=== PATIENT | male | born 1960 | race Caucasian/White ===

== ENCOUNTER 2018-03-05 13:36 | Inpatient (IN) ==
[2018-03-05] MEDS ORDERED: CeFAZolin Syr 3,000MG/30 ML 3,000 MG/30 ML SYRINGE IVPB ONE (14:04)
[2018-03-05] MEDS ORDERED: Ringers Solution, Lactated 1,000 ML IVC SCH ×2 (14:15→17:41)
[2018-03-05] MEDS ORDERED: Bupivacaine/Clonidine Syringe 1 EACH SYRINGE ONE (14:55)
[2018-03-05] MEDS ORDERED: Ethanol\\Acetic Acid\\Na Ace\\Ben 1,000 ML IRRIG.SOLN IR ONE (15:08)
[2018-03-05] MEDS ORDERED: *HR* Midazolam HCl 2 MG/2 ML VIAL ONE (15:08)
[2018-03-05] MEDS ORDERED: *HR* FentaNYL (PF) 100 MCG/2 ML VIAL ONE ×2 (15:08→15:09)
[2018-03-05] MEDS ORDERED: Dexamethasone 4 MG/ML VIAL ONE ×2 (15:09→15:18)
[2018-03-05] MEDS ORDERED: ROPIVACAINE HCL/PF 0.5% 30 ML VIAL ONE (15:10)
[2018-03-05] MEDS ORDERED: *HR* Succinylcholine 200 MG/10 ML VIAL IVP ONE ×2 (15:18→15:24)
[2018-03-05] MEDS ORDERED: Ondansetron 4 MG/2 ML VIAL ONE (15:18)
[2018-03-05] MEDS ORDERED: *HR* Rocuronium Bromide 50 MG/5 ML VIAL ONE ×2 (15:18→15:24)
[2018-03-05] MEDS ORDERED: *HR* Propofol 200 MG/20 ML VIAL IVP ONE ×2 (15:24→15:49)
[2018-03-05] MEDS ORDERED: Lidocaine -MPF 2% 2 ML VIAL ONE (15:24)
[2018-03-05] MEDS ORDERED: Lidocaine -MPF 4% 5 ML AMPUL ONE (15:24)
[2018-03-05] MEDS ORDERED: *HR* Meperidine 25 MG/ML SYRINGE IVP PRN (15:59)
[2018-03-05] MEDS ORDERED: *HR* Labetalol 20 MG/4 ML SYRINGE IVP PRN (15:59)
[2018-03-05] MEDS ORDERED: Ondansetron 4 MG/2 ML VIAL IVP ONE (15:59)
[2018-03-05] MEDS ORDERED: *HR* Promethazine 25 MG/ML VIAL IVP PRN (15:59)
[2018-03-05] MEDS ORDERED: *HR* HYDROmorphone (PF) 1 MG/ML SYRINGE IVP PRN (15:59)
[2018-03-05] MEDS ORDERED: *HR* PHENYLEPHRINE 1,000 MCG/10 ML SYRINGE IVP ONE ×2 (16:06→16:35)
[2018-03-05] MEDS ORDERED: EPHEDrine 50 MG/ML VIAL ONE (16:18)
[2018-03-05 17:31] LABS: Hematocrit 47.6 % (37.5-50.1)
[2018-03-05] MEDS ORDERED: traMADol 50 MG TABLET PO PRN (17:41)
[2018-03-05] MEDS ORDERED: Naloxone 0.4 MG/ML INJ IVP PRN (17:41)
[2018-03-05] MEDS ORDERED: Ondansetron 4 MG/2 ML VIAL IVP PRN (17:41)
[2018-03-05] MEDS ORDERED: Temazepam 15 MG CAPSULE PO PRN (17:41)
[2018-03-05] MEDS ORDERED: Sennosides 8.6 MG TABLET PO PRN (17:41)
[2018-03-05] MEDS ORDERED: MOM Conc 10 ML UD.LIQ PO PRN (17:41)
[2018-03-05] MEDS ORDERED: *HR* HYDROcodone/Acet 10/325 mg TABLET PO PRN (17:41)
[2018-03-05] MEDS ORDERED: *HR* HYDROcodone/Acet 5/325 mg TABLET PO PRN (17:41)
[2018-03-05] MEDS ORDERED: *HR* Enoxaparin 30 MG/0.3 ML SYRINGE SQ SCH (18:00)
--- NOTE | 2018-03-05 19:19 | Physician Discharge Referral ---
Home Health/Hosp Referral Info Transfer to: Home Health Provider in Charge Post Discharge: PCP - Diagnosis (1) Rotator cuff arthropathy of right shoulder Priority: Primary Status: Acute (2) Status post reverse arthroplasty of right shoulder Priority: Primary Status: Acute - Respiratory Orders None Smoking Cessation: Smoking cessation has been advised. For more information, call the [place] Tobacco Quit Line at 7-485-XUVD-NOW. - Diet/Nutrition Diet/Nutrition Orders: Regular - Activity Activity Orders: Ambulate - Services Needed Following services are medically necessary services: Nursing, Home Health Aide, Physical Therapy, Occupational Therapy Home Care Orders: Opsite dressing, leave intact until first post-operative visit. Zipline in place, plan to remove at post-operative day #14-16. If dressing becomes >50% saturated, contact office, remove dressing and place appropriate dressing in its place. Do not allow for dressing to get wet. Shoulder Precautions x 6 weeks. Apply cold therapy wrap 3-6x/day for 20 minutes at a time. Encourage ambulation throughout the day. Use Incentive spirometer 10x/hour. Elevate affected extremity above heart as tolerated. NWB to affected upper extremity x 6 weeks. Will remove brace at first post-operative appointment. OK to remove during PT/OT and Home exercises. Remove ABD pillow at Postoperative day #1 - Transfer Medications Home Medications: Aspirin 81 mg PO DAILY 06/26/17 [History] Gabapentin [Neurontin] 300 - 600 mg PO TID 06/26/17 [History] Oxycodone HCl/Acetaminophen [Percocet 7.5-325 mg Tablet] 1 each PO Q6HR PRN 3 Days #12 tablet 06/26/17 [Rx] Allergies/Adverse Reactions: Allergy/AdvReac Type Severity Reaction Status Date / Time codeine AdvReac Fever Verified 06/26/17 08:19 Oxycodone AdvReac Vomiting Verified 06/26/17 13:26 paper tape AdvReac Rash Uncoded 06/26/17 08:19 Certification: Further, I certify that my clinical findings support that this patient is homebound (i.e. absences from home require considerable and taxing effort and are for medical reasons or [employer] services or infrequently or short duration when for other reasons) because: Homebound Reason: Post-surgery restriction and or conditions limit ability to leave home Attestation: My signature below is to certify that this patient is under my care and that I, or nurse practitioner, or a physician's insurance underwriting assistant working with me, has a fac e-to-face encounter with this patient.
--- NOTE | 2018-03-05 19:21 | History & Physical Report ---
Date of Encounter: 03/05/18 Time of Encounter: 14:00 24 Hour HP Update - Instructions Instructions: If the History and Physical is less than 30 days old and was completed prior to A.M. admission and or procedure and has NOT been updated on calendar day of procedure please complete this update prior to performing procedure. - Update Patient reports changes in Medical Condition: No Changes in examination, assessment, or condition: No Changes in Medication: No Preop tests/diagnostics Reviewed: Yes Surgery Remains Indicated: Yes Consent for Planned Operative Procedure(s) Verified: Yes - Pre-Operative Checklist Preoperative Checklist Indicated: No Prophylactic Antibiotic Ordered: Yes Is VTE Prophylaxis Indicated?: Yes
--- NOTE | 2018-03-05 19:21 | Discharge Summary ---
Orders not resulted at time of discharge: Pending orders 03/05/18 13:39 XR shoulder complete RT [XR] Routine 03/05/18 13:40 H/H [Hemoglobin and Hematocrit] [HEME] Routine 03/05/18 13:54 US anesthesia pain block [US] Routine Date of Encounter: 03/08/18 Time of Encounter: 10:56 - Discharge Diagnosis (1) Obstructive sleep apnea Priority: Secondary Status: Chronic (2) History of DVT (deep vein thrombosis) Priority: Secondary Status: Chronic (3) History of CA (myocardial infarction) Priority: Secondary Status: Resolved (4) Rotator cuff arthropathy of right shoulder Priority: Primary Status: Chronic (5) Status post reverse arthroplasty of right shoulder Priority: Primary Status: Acute (6) Obesity (BMI 35.0-39.9 without comorbidity) Priority: Secondary Status: Chronic - Hospital Course Hospital course: Mr. aBteman is a 57 year old male Status post total shoulder replacement, patient with issues with pain control admission extended one more day. Patient discharged stable condition received advice and physical therapy discharge stable condition - Time Spent with Patient Total time spent providing and/or coordinating discharge services: - Discharge Medications Prescriptions: HYDROmorphone [Dilaudid] 2 mg PO Q6HR 5 Days #20 tablet Home Medications: Aspirin [Adult Aspirin Regimen] 81 mg PO DAILY 03/05/18 [History] HYDROcodone/Acet 5/325 mg [[place] 5-325 mg] 1 tab PO Q6H PRN 5 Days #20 tab 03/05/18 [Rx] HYDROmorphone [Dilaudid] 2 mg PO Q6HR 5 Days #20 tablet 03/05/18 [Rx] Lisinopril [Zestril] 40 mg PO DAILY 03/05/18 [History] Docusate Sodium [Dulcolax Stool Softener] 100 mg PO BID 03/06/18 [History] Levothyroxine Sodium [Levoxyl] 75 mcg PO DAILY 03/06/18 [History] Meloxicam [Mobic] 15 mg PO DAILY 03/06/18 [History] Tamsulosin [Flomax] 0.4 mg PO DAILY 03/06/18 [History] Testosterone Cypionate [Depo-Testosterone] 100 mg IM QWEEK 03/06/18 [History] Allergies/Adverse Reactions: Allergy/AdvReac Type Severity Reaction Status Date / Time codeine AdvReac Fever Verified 03/05/18 14:05 Oxycodone AdvReac Vomiting Verified 03/05/18 14:05 paper tape AdvReac Rash Uncoded 03/05/18 14:05 [facility] care [facility]: [facility] - Patient Status Disposition: Home Health Service - Discharge Instructions Follow Up With: [facility] [Primary Care Provider] - Additional Instructions: Discharge Instructions: Total Shoulder Please call [facility] ([phone]), your Primary Care Physician, or report to the Emergency Room if you have any of the following symptoms: Nausea, vomiting, fever greater that 101.5, swelling, chest pain, shortness of breath, increased pain/redness/drainage/odor for your incision site, numbness/tingling, or any other concerning symptoms. ACTIVITY: Always keep your arm in the sling. Do not raise your arm away from your body. Do not use your arm to help with getting in or out of bed. No weight bearing permitted. Only perform those exercises given to you by your therapist. Incentive Spirometer 10 times an hour. MEDICATIONS: Upon discharge resume your home medications. Take all the medications as prescribed. Take a stool softener if taking narcotic pain medications. Stool softeners are only effective if you drink enough fluids. Drink 6-8 glass of water or fluids a day, unless this is not allowed for another health problem. Despite using stool softeners, if you haven't had a bowel movement in 3 days, please switch to a gentle laxative. Gentle laxatives are sold over the counter. You should have a bowel movement within 24 hours, if not call the office. You will be discharged from the hospital with a prescription for pain medication. You are encouraged to decrease the use of narcotic pain medication as tolerated. Should you require a refill, please call the office. [facility] prescribes narcotic pain medication for only 4-6 weeks after surgery. If you require pain medication beyond this time period, you may be referred to your Primary Care Physician or to the Pain Clinic for further evaluation. Plan ahead for refills on pain medication as many narcotics either need to be picked up at the office or mailed. It is best to call 48-72 hours in advance of needing a prescription refill so you don't run out of medication. To help control the post-operative pain, you may take NSAIDs (Aleve,Advil, Motrin, Ibuprofen, Naprosyn) or Tylenol as prescribed on the bottle in addition to the pain medication. WOUND CARE: Leave the dressing on for 7-10 days. You may change the dressing if it becomes saturated greater than 50%. Do not get the dressing wet at anytime. Wash your hands with antibacterial soap, rinse and dry prior to any wound care. If you have saud the visiting nurse or rehab facility can remove the stapes 10-14 days after surgery and place steri-strips across the wound. Leave the steri-strips in place until they fall off on their own. You may let water from the shower run on top of the steri-strips. If you do not have a visiting nurse or rehab facility, you will need to return to the office at 10-14 days for the saud to be removed. If you have itching or redness around the dressing call the office. FOLLOW-UP: Please follow up with your surgeon in the orthopedic clinic, as scheduled
--- NOTE | 2018-03-05 19:21 | Anesthesia Evaluation PreOp ---
Date of Encounter: 03/05/18 Time of Encounter: 13:56 - Past History Planned Operation: Right Total Shoulder Cardiac History: MA (5+ years ago, good exercize), HTN, Other (Patient had a complicated postoperative course following gallbladder surgery. Developed bilateral DVT/PE. Had prolonged ICU stay. Reports that he did have an MA. He is on no cardiac medications.)) Pulmonary History: JAN Dx (CPAP) DIRECTOR OF BUSINESS CONTINUITY History: Other (Anxiety/Depression) Other Medical History: GERD, Other (Chronic Pain syndrome, Lumbar DDD, Post laminectomy Syndrome) Anesthesia History: No Prior Anesthetic Complications, Past Anesthesia (GB, Laminectomy, Kidney stones,Mario. TKR) Alcohol Use: none Drug use: none Medications and Allergies HYDROcodone/Acet 5/325 mg [[place] 5-325 mg] 1 tab PO Q6H PRN 5 Days #20 tab 03/05/18 [Rx] RX: Aspirin [Adult Aspirin Regimen] 81 mg PO DAILY 03/05/18 [History] RX: Lisinopril [Zestril] 20 mg PO DAILY 03/05/18 [History] Allergy/AdvReac Type Severity Reaction Status Date / Time codeine AdvReac Fever Verified 03/05/18 14:05 Oxycodone AdvReac Vomiting Verified 03/05/18 14:05 paper tape AdvReac Rash Uncoded 03/05/18 14:05 - Meds/Allergy Pre-op Review Medications Reviewed: Yes Allergies Reviewed: Yes Beta Blockers on Current Med List: No Anesthesia Results - Labs Laboratory Tests 06/23/17 02/23/18 02/23/18 08:55 18:15 18:15 WBC 8.1 Hgb 15.5 Hct 47.8 Plt Count 195 INR 1.0 Sodium 142 Potassium 3.9 Chloride 101 Carbon Dioxide 29 BUN 13 Creatinine 1.02 - Imaging EKG: report reviewed (SINUS RHYTHM LEFT ANTERIOR FASCICULAR BLOCK) Anesthesia Exam O2 Sat Height 1.93 m Height 1.93 m Weight 132.903 kg Weight 132.903 kg O2 Sat by Pulse Oximetry 95 Vital Signs Temp Pulse Resp BP Pulse Ox 98.0 F 94 18 164/98 95 03/05/18 13:50 03/05/18 13:50 03/05/18 13:50 03/05/18 13:50 03/05/18 13:50 NPO (# of Hours): > 8 hrs Pain Scale: 0 Pain Scale Used: Numeric (1 - 10) - HEENT Pupil (Motor): Pupils equal, EOMI Mallampati: II Teeth: Normal Oral Opening: Greater than 3 - DIRECTOR OF BUSINESS CONTINUITY LOC: Oriented DIRECTOR OF BUSINESS CONTINUITY Motor: Normal RUE, Normal LUE, Normal RLE, Normal LLE, Normal Face DIRECTOR OF BUSINESS CONTINUITY Sensory: Normal: RUE, LUE, RLE, LLE, Face - Cardiac Rhythm: Regular Murmur: None JVD: No Carotid Bruit: No - Pulmonary Breath Sounds: bilateral Clear Respiratory Effort: Symmetrical Anesthesia Assess/Plan ASA Score: 3 Modified Rumsey Scale for Level of Consciousness: Cooperative, oriented, and tranquil Anesthetic Plan: General, Regional Autologous Blood: Yes Monitoring Plan: Standard Monitors Recovery Plan: PACU
--- NOTE | 2018-03-05 19:35 | Anesthesia Procedures ---
Date of Encounter: 03/05/18 Time of Encounter: 15:00 Procedures: Anesthesia - Nerve Block Procedure Date: 03/05/18 Time: 15:00 Checklist: Correct Patient Identifier, Correct procedure Correct side: Right Blood Thinner: No Monitor Applied: EKG, BP, Pulse Oximetry Supplemental Oxygen via Nasal Cannula (L/min): 2 Sedation: Versed (mg): 2 Sedation: Fentanyl (mcg): 2 Indication: Post Op Analgesia Pre-op Neuro Deficits: No Block Type: Supraclavicular Catheter placed: No Sterile Technique: Yes Ultrasound used: Yes Anatomy identified: Yes Blood on Needle Aspiration: No Smooth Injection of Local: Yes Pain with Injection of Local: No Prep: Chlorhexadine Needle: 22 x 50 mm Stimuplex Local: 0.25% Bupivicaine w/Clonidine 20 mcg/cc (10 ml intercostal brachial 5 ml intermediate cervical plexus ), Ropivacaine (0.5% with 8 mg decadron 30 cc ) Volume (cc): 45 Number of Attempts: 1 Complications: None/effective block
--- NOTE | 2018-03-05 19:37 | Orthopedic Operative Note ---
Date of procedure: 03/05/18 Pre-op diagnosis: Right shoulder cuff tear arthropathy Post-op diagnosis: same Procedure: Procedure: Total Shoulder Replacment Reverse, right Estimated blood loss: 100 cc Hardware: Metal and polyethylene replacement: Arthrex 24, +4 , 35 screw glenoid baseplate, 2 4.5 screws. 2 5.5 screw, 1-2+4 glenosphere, 15 apex humeral stem, poly insert 3 and 12 metal Exam Under anesthesia: Full motion no stability Procedural Notes: Irreparable tear rotator cuff Operative procedure: The patient was brought to the operating room and placed on the operating room table. After general anesthesia was administered the operative shoulder was examined. Findings were noted. The patient was placed in the modified beachchair position. All pressure points were padded appropriately. And the head was stabilized in the neutral position. The operative extremity was prepped and draped in the sterile surgical fashion. The patient received IV antibiotics prior to skin incision. A standard deltopectoral approach was made to the operative shoulder. Incision was made to the skin and subcutaneous tissue,hemo stasis was obtained with Bovie cautery. Using careful blunt dissection the cephalic vein was identified and mobilized medially. The deltopectoral interval was developed and the clavipectoral fascia was incised. The subscap was released off the lesser tuberosity and tagged with #2 FiberWire suture subscap was irreparable. The humerus was dislocated patient noted to have irreparable tear supraspinatus tendon, and the humeral cut was made along the anatomic neck. Anterior and posterior Bankart retractors were placed to expose the glenoid. The glenoid guide was seated and the centering hole was made. It was reamed with the appropriate reamer. The 24, +4, 35 mm screw, baseplate was seated and secured with (2) 4.5 screws and 2 5.5 screw. The baseplate was irrigated and dried and the order 2+4 Glenosphere was seated and secured with the Moon taper. The Moon taper was tested and found to be secure the humerus was redislocated and prepared with the diaphyseal reamers, followed by a broaching process up to the appropriate size 15 apex in the patient's anatomic version. The metaphyseal reamer was then utilized. Trial reduction found the shoulder to be relocatable. Trial components were removed and 15 apex stem was impacted in place in the patient's anatomic version. Trial reduction found the shoulder to be relocatable and stable with the appropriate 12 metal 3 Nalini Trial component was removed and the real implant was seated and secured the shoulder was reduced. The shoulder had excellent motion and excellent stability and no evidence of dislocation. The deep tissue was irrigated with pulse irrigation. The deltopectoral interval was closed with a running #1 PDS suture, subcutaneous tissue was irrigated and closed with 0 PDS suture, the skin was closed with Dermabond. The patient was placed in a sterile dressing, abduction brace and extubated. The patient was then transferred to the recovery room in stable condition. Anesthesia: GETA Surgeon: Giovanni Simpson Was there an clothing sales assistant present: No Estimated blood loss (cc): 100 Condition: stable Disposition: PACU
--- NOTE | 2018-03-05 19:40 | Anesthesia Evaluation Post Op ---
Date of Encounter: 03/05/18 Time of Encounter: 17:35 - Vital Signs Vital Signs: Vital Signs/O2 Sat, Most Current Temp Pulse Resp BP Pulse Ox 99.2 F 101 16 128/84 96 03/05/18 17:26 03/05/18 17:26 03/05/18 17:26 03/05/18 17:26 03/05/18 17:26 - Lungs Lungs: Clear Ascult./Percussion - Airway Airway: Non-obstructed - Cardiovascular Regular Rate - Mental Status Mental Status: Alert & Oriented, Answers Appropriately - Pain Pain Scale: 0 Pain Scale used: Numeric (1 - 10) - Nausea Vomiting Nausea Vomiting: Not Present - Hydration Hydration: Ice chips, Has not voided - Discharge PostOp Status: Transfer Patient to floor
[2018-03-05] MEDS: *HR* Enoxaparin 30 MG/0.3 ML SYRINGE SQ SCH (20:24)
[2018-03-05] MEDS: *HR* HYDROmorphone 2 MG TABLET PO PRN (20:28)
[2018-03-06] MEDS: ceFAZolin sodium 3,000 MG in 0.9 % Sodium Chloride 100 ML IVPB SCH ×2 (00:11→09:22)
[2018-03-06] MEDS: *HR* HYDROmorphone 2 MG TABLET PO PRN ×3 (02:30→19:51)
[2018-03-06] MEDS: *HR* Enoxaparin 30 MG/0.3 ML SYRINGE SQ SCH ×2 (06:21→17:23)
[2018-03-06 06:22] LABS: Hematocrit 45.5 % (37.5-50.1); Hemoglobin 14.6 g/dL (12.9-16.9)
[2018-03-06] MEDS: Lisinopril 20 MG TABLET PO SCH (08:46)
[2018-03-06] MEDS: Aspirin Enteric Coated 81 MG Tablet PO SCH (08:49)
--- NOTE | 2018-03-06 10:25 | Orthopedics Progress Note ---
Date of Encounter: 03/06/18 Time of Encounter: 10:22 Subjective Interval history: S: Patient is seen today and has no complaints. O: Afebrile and vital signs are stable Operative extremity dressing is clean, dry, and intact. Neurovascularly intact distally A: Post right total shoulder replacement P: Resume postoperative [facility] today Objective Vital signs: Vital Signs Temp Pulse Resp BP Pulse Ox 03/06/18 06:47 97.9 F 90 18 111/71 94 03/06/18 03:41 97.9 F 88 18 117/75 94 03/05/18 23:11 98.2 F 98 18 126/85 93 03/05/18 19:30 98.0 F 97 16 125/79 95 03/05/18 18:50 99 15 129/84 94 03/05/18 18:18 97.8 F 99 16 126/85 93 03/05/18 17:45 97.7 F 98 16 128/84 93 03/05/18 17:26 99.2 F 101 16 128/84 96 03/05/18 17:16 105 16 134/98 96 03/05/18 17:06 105 18 127/87 97 03/05/18 16:56 99 F 101 18 132/84 100 03/05/18 15:22 88 18 140/100 95 03/05/18 13:50 98.0 F 94 18 164/98 95 Intake and Output 03/05/18 03/06/18 03/06/18 23:59 07:59 15:59 Intake Total 0 / 0 100 / 100 120 / 120 Output Total 400 / 400 600 / 600 Balance -400 / -400 -500 / -500 120 / 120 Intake: IV Fluids 100 / 100 Ancef 3,000 MG In 0.9 % Sodium 100 / 100 Chloride 100 ML @ 200 mls/hr IVPB Q8HR [facility] Rx#:[id number] Oral 0 / 0 0 / 0 120 / 120 Output: Urine 300 / 300 600 / 600 Estimated Blood Loss 100 / 100 Other: Meal Breakfast Percent of Meal Consumed 100% Weight 133.1 kg Patient Weight 03/06/18 23:59 Weight 133.1 kg - Labs CBC & BMP: 03/06/18 05:13 - VTE Documentation of Mechanical Device: Venous foot pump, device Consult Discharge Plan - Plan [facility]errals: [facility] [Primary Care Provider] - Prescriptions: HYDROmorphone [Dilaudid] 2 mg PO Q6HR 5 Days #20 tablet
[2018-03-06] MEDS ORDERED: *HR* HYDROmorphone 2 MG TABLET PO ONE (13:21)
[2018-03-06] MEDS: traMADol 50 MG TABLET PO PRN ×2 (14:24→20:38)
[2018-03-06] MEDS ORDERED: Ketorolac 30 MG/ML VIAL IM ONE (14:40)
[2018-03-06] MEDS ORDERED: Gabapentin 300 MG CAPSULE PO ONE (14:42)
[2018-03-06] MEDS: Gabapentin 300 MG CAPSULE PO SCH (19:51)
[2018-03-07] MEDS: *HR* HYDROmorphone 2 MG TABLET PO PRN ×2 (02:47→08:53)
[2018-03-07 04:11] LABS: Hematocrit 43.1 % (37.5-50.1); Hemoglobin 13.7 g/dL (12.9-16.9)
[2018-03-07] MEDS: traMADol 50 MG TABLET PO PRN ×2 (06:05→11:59)
[2018-03-07] MEDS: *HR* Enoxaparin 30 MG/0.3 ML SYRINGE SQ SCH (06:06)
[2018-03-07 06:50] VITALS: BP 150/84
[2018-03-07] MEDS: Lisinopril 20 MG TABLET PO SCH (08:08)
[2018-03-07] MEDS: Gabapentin 300 MG CAPSULE PO SCH (08:08)
[2018-03-07] MEDS: Aspirin Enteric Coated 81 MG Tablet PO SCH (08:08)
--- NOTE | 2018-03-07 09:37 | Orthopedics Progress Note ---
Date of Encounter: 03/07/18 Time of Encounter: 09:36 Subjective Interval history: S: The block has worn off and he did have significant pain yesterday which is under better control today with the oral Dilaudid and tramadol. O: Afebrile and vital signs are stable Operative extremity dressing is clean, dry, and intact. Neurovascularly intact distally A: Post right total shoulder replacement P: Resume postoperative custodial today Objective Vital signs: Vital Signs Temp Pulse Resp BP Pulse Ox 03/07/18 06:45 97.7 F 88 18 150/84 94 03/07/18 03:55 98.0 F 96 18 138/93 93 03/07/18 00:32 98.8 F 98 18 119/74 93 03/06/18 19:28 98.5 F 99 17 162/76 92 03/06/18 15:33 99.4 F 90 17 152/84 93 03/06/18 11:04 98.1 F 88 18 133/87 93 Intake and Output 03/06/18 03/07/18 03/07/18 23:59 07:59 15:59 Intake Total 240 / 240 0 / 0 Output Total 0 / 0 Balance 240 / 240 0 / 0 Intake: Oral 240 / 240 0 / 0 Output: Urine 0 / 0 Other: Meal Dinner Percent of Meal Consumed 100% # Voids 1 Weight 133.3 kg Patient Weight 03/07/18 23:59 Weight 133.3 kg - Labs CBC & BMP: 03/07/18 03:17 - VTE Documentation of Mechanical Device: Venous foot pump, device Consult Discharge Plan - Plan Additional Instructions: Discharge Instructions: Total Shoulder Please call [facility] ([phone]), your Primary Care Physician, or report to the Emergency Room if you have any of the following symptoms: Nausea, vomiting, fever greater that 101.5, swelling, chest pain, shortness of breath, increased pain/redness/drainage/odor for your incision site, numbness/tingling, or any other concerning symptoms. ACTIVITY: Always keep your arm in the sling. Do not raise your arm away from your body. Do not use your arm to help with getting in or out of bed. No weight bearing permitted. Only perform those exercises given to you by your therapist. Incentive Spirometer 10 times an hour. MEDICATIONS: Upon discharge resume your home medications. Take all the medications as prescribed. Take a stool softener if taking narcotic pain medications. Stool softeners are only effective if you drink enough fluids. Drink 6-8 glass of water or fluids a day, unless this is not allowed for another health problem. Despite using stool softeners, if you haven't had a bowel movement in 3 days, please switch to a gentle laxative. Gentle laxatives are sold over the counter. You should have a bowel movement within 24 hours, if not call the office. You will be discharged from the hospital with a prescription for pain medication. You are encouraged to decrease the use of narcotic pain medication as tolerated. Should you require a refill, please call the office. [facility] prescribes narcotic pain medication for only 4-6 weeks after surgery. If you require pain medication beyond this time period, you may be referred to your Primary Care Physician or to the Pain Clinic for further evaluation. Plan ahead for refills on pain medication as many narcotics either need to be picked up at the office or mailed. It is best to call 48-72 hours in advance of needing a prescription refill so you don't run out of medication. To help control the post-operative pain, you may take NSAIDs (Aleve,Advil, Motrin, Ibuprofen, Naprosyn) or Tylenol as prescribed on the bottle in addition to the pain medication. WOUND CARE: Leave the dressing on for 7-10 days. You may change the dressing if it becomes saturated greater than 50%. Do not get the dressing wet at anytime. Wash your hands with antibacterial soap, rinse and dry prior to any wound care. If you have saud the visiting nurse or rehab facility can remove the stapes 10-14 days after surgery and place steri-strips across the wound. Leave the steri-strips in place until they fall off on their own. You may let water from the shower run on top of the steri-strips. If you do not have a visiting nurse or rehab facility, you will need to return to the office at 10-14 days for the saud to be removed. If you have itching or redness around the dressing call the office. FOLLOW-UP: Please follow up with your surgeon in the orthopedic clinic, as scheduled [facility]errals: [facility] [Primary Care Provider] - Prescriptions: HYDROmorphone [Dilaudid] 2 mg PO Q6HR 5 Days #20 tablet
== END 2018-03-07 12:00 | disposition home health service (06) | DRG 483 ==
LOC: SAMDAY 13:36 → 3NENU 17:36
PROVIDERS: ADMIT Orthopaedic Surgery; ATTEND Orthopaedic Surgery

== ENCOUNTER 2020-04-08 03:12 | Observation (INO) ==
[2020-04-08] MEDS ORDERED: Isovue-370 500 ML BOTTLE IVP ONE (03:29)
[2020-04-08] MEDS ORDERED: ISOVUE-370 100 ML INFUS..BTL IV ONE (03:31)
[2020-04-08] MEDS ORDERED: *HR* HYDROmorphone (PF) 1 MG/ML SYRINGE IVP ONE ×2 (03:41→05:39)
[2020-04-08 03:48] LABS: Basophils % 0.4 %; Eosinophils # 0.2 K/mcL (0.0-0.6); Eosinophils % 1.6 %; Hematocrit 50.1 % (37.5-50.1); Hemoglobin 15.2 g/dL (12.9-16.9); Immature Granulocytes % 0.3 % (0-4); Lymphocytes # 1.7 K/mcL (0.6-4.6); Lymphocytes % 15.9 %; Mean Corpuscular HGB Conc 30.3 g/dL (31.6-35.5); Mean Corpuscular Volume 82.5 fL (83.0-100.0); Mean Platelet Volume 10.3 fL (9.4-12.4); Monocytes # 1.3 K/mcL (0.0-1.3); Monocytes % 12.6 %; Neutrophils # 7.3 K/mcL (1.6-8.9); Platelet Count 240 K/mcL (140-400); Red Blood Count 6.07 M/mcL (4.19-5.50); Red Cell Distribution Width 14.7 % (11.5-14.5); Segmented Neutrophils % 69.2 %; White Blood Count 10.6 K/mcL (4.3-11.1)
[2020-04-08 04:08] LABS: BUN/Creatinine Ratio 14 (6-26); Blood Urea Nitrogen 15 mg/dL (8-23); Calcium 9.3 mg/dL (8.6-10.3); Carbon Dioxide 28 mEq/L (23-29); Chloride 102 mEq/L (98-107); Glucose 108 mg/dL (70-105); Osmolality,Calculated 283 (280-300); Potassium 3.9 mEq/L (3.5-5.1); Sodium 136 mEq/L (136-145); eGFR For African Americans > 60 (> 60); eGFR For Non-African Americans > 60 (> 60)
[2020-04-08 04:20] LABS: Bilirubin,Urine Negative (Negative); Blood,Urine Trace (Negative); Clarity,Urine Clear (Clear); Color,Urine Yellow (Yellow); Glucose,Urine (UA) Normal (Normal); Ketones,Urine Trace mg/dL (Negative); Leukocyte Esterase,Urine Negative (Negative); Mucus,Urine Few per lpf (None-Few); Nitrite,Urine Negative (Negative); PH,Urine 5.5 pH Units (5.0-8.0); Protein,Urine Negative (Neg-Trace); RBC,Urine 0-3 per hpf (0-3); Specific Gravity,Urine 1.026 (1.010-1.025); Squamous Epithelial Cell,Urine Few per hpf (None-Few); Urobilinogen,Urine Normal (Normal); WBC,Urine 0-3 per hpf (0-3)
[2020-04-08] MEDS ORDERED: *HR* HYDROcodone/Acet 5/325 mg TABLET PO PRN (07:10)
[2020-04-08] MEDS ORDERED: Acetaminophen 325 MG TABLET PO PRN (07:10)
[2020-04-08] MEDS ORDERED: Naloxone 0.4 MG/ML INJ IVP PRN (07:10)
[2020-04-08] MEDS ORDERED: Ondansetron 4 MG/2 ML VIAL IVP PRN (07:10)
[2020-04-08] MEDS ORDERED: *HR* HYDROmorphone 2 MG TABLET PO SCH (09:00)
[2020-04-08] MEDS: *HR* HYDROmorphone 2 MG TABLET PO SCH ×3 (09:18→20:30)
[2020-04-08] MEDS: Cholecalciferol (D-3) 1,000 UNIT (25MCG) TABLET PO SCH (09:22)
[2020-04-08] MEDS: *HR* Rivaroxaban 10 MG TABLET PO SCH (09:22)
[2020-04-08] MEDS: lisinopriL 20 MG TABLET PO SCH (09:23)
[2020-04-08 10:15] LABS: INR 1.2; Prothrombin Time 13.8 Seconds (9.4-12.1)
[2020-04-08 10:18] LABS: Activated Partial Thrombo Time 32.5 Seconds (26.0-36.0)
[2020-04-08] MEDS: *HR* HYDROmorphone (PF) 1 MG/ML SYRINGE IVP PRN ×2 (13:34→21:56)
[2020-04-08] MEDS: MethylPREDNISolone 40 MG/ML VIAL IVP SCH ×3 (17:14→23:22)
[2020-04-09 02:25] LABS: Basophils % 0.2 %; Hematocrit 48.5 % (37.5-50.1); Hemoglobin 14.7 g/dL (12.9-16.9); Immature Granulocytes % 0.4 % (0-4); Lymphocytes # 0.7 K/mcL (0.6-4.6); Lymphocytes % 8.4 %; Mean Corpuscular HGB Conc 30.3 g/dL (31.6-35.5); Mean Corpuscular Volume 82.6 fL (83.0-100.0); Mean Platelet Volume 10.7 fL (9.4-12.4); Monocytes # 0.2 K/mcL (0.0-1.3); Monocytes % 2.1 %; Neutrophils # 7.5 K/mcL (1.6-8.9); Platelet Count 244 K/mcL (140-400); Red Blood Count 5.87 M/mcL (4.19-5.50); Red Cell Distribution Width 14.6 % (11.5-14.5); Segmented Neutrophils % 88.9 %; White Blood Count 8.4 K/mcL (4.3-11.1)
[2020-04-09 02:44] LABS: Alanine Aminotransferase 30 Units/L (7-52); Albumin/Globulin Ratio 1.6 (1.1-2.2); Alkaline Phosphatase 46 Units/L (34-104); Aspartate Amino Transferase 25 Units/L (13-39); BUN/Creatinine Ratio 18 (6-26); Bilirubin,Total 0.5 mg/dL (0.3-1.0); Blood Urea Nitrogen 17 mg/dL (8-23); Carbon Dioxide 26 mEq/L (23-29); Chloride 103 mEq/L (98-107); Globulin 2.5 g/dL (2.4-3.5); Glucose 149 mg/dL (70-105); Magnesium 1.8 mg/dL (1.6-2.6); Osmolality,Calculated 284 (280-300); Phosphorous 1.9 mg/dL (2.7-4.5); Potassium 4.5 mEq/L (3.5-5.1); Sodium 135 mEq/L (136-145); Total Protein 6.5 g/dL (6.4-8.9); eGFR For African Americans > 60 (> 60); eGFR For Non-African Americans > 60 (> 60)
[2020-04-09] MEDS: *HR* HYDROmorphone (PF) 1 MG/ML SYRINGE IVP PRN ×2 (04:12→11:05)
[2020-04-09] MEDS: Cholecalciferol (D-3) 1,000 UNIT (25MCG) TABLET PO SCH (08:24)
[2020-04-09] MEDS: *HR* HYDROmorphone 2 MG TABLET PO SCH (08:24)
[2020-04-09] MEDS: lisinopriL 20 MG TABLET PO SCH (08:25)
[2020-04-09] MEDS: *HR* Rivaroxaban 10 MG TABLET PO SCH (08:25)
[2020-04-09] MEDS: MethylPREDNISolone 40 MG/ML VIAL IVP SCH (08:26)
[2020-04-09 15:06] VITALS: BP 130/81
== END 2020-04-09 14:08 | disposition home or self-care (01) ==
LOC: EMEROOARM 03:12 → 3NENU 03:12 → SUATTDRO 06:57 → 3NENU 08:23
PROVIDERS: ADMIT Internal Medicine; ATTEND Internal Medicine

== ENCOUNTER 2021-05-05 20:02 | Inpatient (IN) ==
[2021-05-06] MEDS ORDERED: Cefepime HCl 2,000 MG in 0.9 % Sodium Chloride Mini Bag 100 ML IVPB STA (01:46)
[2021-05-06 02:35] LABS: Basophils % 0.2 %; Hematocrit 39.1 % (37.5-50.1); Hemoglobin 11.5 g/dL (12.9-16.9); Lymphocytes % 7.1 %; Mean Corpuscular HGB Conc 29.4 g/dL (31.6-35.5); Mean Corpuscular Hemoglobin 23.6 pg (28.0-33.3); Mean Corpuscular Volume 80.3 fL (83.0-100.0); Mean Platelet Volume 10.3 fL (9.4-12.4); Monocytes # 1.1 K/mcL (0.0-1.3); Monocytes % 7.9 %; Platelet Count 176 K/mcL (140-400); Red Blood Count 4.87 M/mcL (4.19-5.50); Red Cell Distribution Width 17.1 % (11.5-14.5); Segmented Neutrophils % 83.8 %; White Blood Count 14.3 K/mcL (4.3-11.1)
[2021-05-06 02:40] LABS: Bacteria,Urine Few per hpf (None-Few); Bilirubin,Urine Negative (Negative); Blood,Urine Moderate (Negative); Clarity,Urine Clear (Clear); Color,Urine Light-Orange (Yellow); Glucose,Urine (UA) Normal (Normal); Ketones,Urine Negative (Negative); Leukocyte Esterase,Urine Small (Negative); Mucus,Urine Few per lpf (None-Few); Nitrite,Urine Negative (Negative); Protein,Urine 100 mg/dL (Neg-Trace); RBC,Urine 0-3 per hpf (0-3); Specific Gravity,Urine > 1.030 (1.010-1.025); Squamous Epithelial Cell,Urine Few per hpf (None-Few); Urobilinogen,Urine Normal (Normal); WBC,Urine 30-50 per hpf (0-3)
[2021-05-06 02:52] LABS: BUN/Creatinine Ratio 14 (6-26); Blood Urea Nitrogen 19 mg/dL (8-23); Calcium 9.4 mg/dL (8.6-10.3); Carbon Dioxide 25 mEq/L (23-29); Chloride 99 mEq/L (98-107); Glucose 121 mg/dL (70-105); Osmolality,Calculated 280 (280-300); Sodium 133 mEq/L (136-145); eGFR For African Americans > 60 (> 60); eGFR For Non-African Americans 54 (> 60)
[2021-05-06] MEDS ORDERED: 0.9 % Sodium Chloride 1,000 ML IVC ONE (03:45)
[2021-05-06 10:29] LABS: C-Reactive Protein 239 mg/L (Less than 10)
[2021-05-06] MEDS ORDERED: Naloxone 0.4 MG/ML INJ IVP PRN (10:41)
[2021-05-06] MEDS ORDERED: *HR* HYDROcodone/Acet 5/325 mg TABLET PO PRN (10:41)
[2021-05-06] MEDS ORDERED: Acetaminophen 325 MG TABLET PO PRN (10:41)
[2021-05-06] MEDS ORDERED: Melatonin 3 MG TABLET PO PRN (10:41)
[2021-05-06] MEDS ORDERED: Ondansetron 4 MG/2 ML VIAL IVP PRN (10:41)
[2021-05-06] MEDS ORDERED: Vancomycin Oral Soln 125 MG/2.5 ML UDC PO SCH (11:00)
[2021-05-06 11:01] LABS: Iron < 10 mcg/dL (65-175); Transferrin 222 mg/dL (203-362)
[2021-05-06] MEDS ORDERED: *HR* Rivaroxaban 10 MG TABLET PO SCH (17:00)
[2021-05-06 19:28] VITALS: BP 122/70; PULSE 81; TEMP 98.7; O2SAT 97
[2021-05-07] MEDS ORDERED: lisinopriL 20 MG TABLET PO SCH (09:00)
== END 2021-05-06 19:42 | disposition short-term general hospital (02) | DRG 872 ==
LOC: 3ANU 20:02 → EMEROOARM 20:02 → 3ANU 05-06 10:19
PROVIDERS: ADMIT Internal Medicine; ATTEND Internal Medicine